=== PATIENT | female | born 1980 | race African-American/Black ===

== ENCOUNTER 2016-10-14 02:19 | Emergency (ER) | payer OTHER ==
[~2016-10-14] VITALS: Ht 162.6 cm; Wt 68.0 kg
[2016-10-14] MEDS ORDERED: LORazepam 1mg tab ORAL ONE (02:30)
--- NOTE | 2016-10-14 02:54 | Emergency Room Report ---
History of Present Illness General Chief Complaint: General Complaint Source: Patient Present Illness HPI This is a 35-year-old female with a history of anxiety. She presents with chief complaint of stress. She said that she recently moved here from [place] and has no family. She been in multiple hospitals since the end of September. She called 911 because she said she was just, anxious and couldn't sleep. No suicidal thought homicidal thought. Denies psychosis. Allergies: Coded Allergies: No Known Allergies (Unverified , 10/14/16) Patient History Past Medical History: see triage record, old chart reviewed, psych hx Past Surgical History: none Family History: none Social History: other Last Menstrual Period: 09/30 Now: No Immunizations: other Reviewed Nursing Documentation: PMH: Agreed, PSxH: Agreed Review of Systems ENT: Denies: sore throat Cardiovascular: Denies: chest pain, palpitations Gastrointestinal/Abdominal: Denies: diarrhea, nausea, vomiting Musculoskeletal: Denies: back problems Skin: Denies: rash Neurological: Denies: DURAN, seizures All Other Systems: negative except mentioned in HPI Physical Exam Vital Signs Date Time Temp Pulse Resp B/P Pulse Ox O2 Delivery O2 Flow Rate FiO2 10/14/16 02:45 98.2 78 18 169/90 100 Room Air vitals with hypertension Sp02 EP Interpretation: reviewed, normal General Appearance: alert/responsive, no apparent distress, non-toxic Head: normocephalic, atraumatic Eyes: PERRL, EOMI ENT: oropharynx normal Neck: supple/symm/no masses Respiratory: effort normal, no rhonchi, no wheezing Cardiovascular: no murmur, gallop, rub Gastrointestinal: non-tender, no mass, non-distended, no rebound/guarding, normal bowel sounds Musculoskeletal: gait & station normal Neurologic: oriented x3, sensory intact, motor strength/tone normal Psychiatric: anxious Skin: no rash, normal palpation Medical Decision Making Diagnostic Impression: Primary Impression: Anxiety ER Course Patient present with anxiety and stress. No suicidal thought homicidal thought. No criteria for 5150. We'll discharge home. She R. he has a social research assistant/manager case management. Last Vital Signs Date Time Temp Pulse Resp B/P Pulse Ox O2 Delivery O2 Flow Rate FiO2 10/14/16 02:45 98.2 78 18 169/90 100 Room Air Status: improved Disposition: HOME, SELF-CARE Condition: Stable Scripts Buspirone Hcl* (BUSPAR*) 10 Mg Tablet 10 MG ORAL THREE TIMES A DAY, #30 TAB 0 Refills Prov: STEF OLIVAREZ M.D. 10/14/16 Additional Instructions: Followup with mental health in a week. Return if symptom worsen. STEF OLIVAREZ M.D. Oct 14, 2016 02:54
[2016-10-14 02:55] VITALS: BP 169/90
[2016-10-14] MEDS ORDERED: BUSPAR10 MG ORAL (02:55)
[2016-10-14 03:23] VITALS: BP 169/90
== END 2016-10-14 03:22 | disposition home or self-care (01) ==
LOC: EDBD 02:19 → EMR 02:31
DX: F41.9 Anxiety disorder, unspecified (principal)
CPT/HCPCS: 80300; 99283